=== PATIENT | male | born 1990 | race Two or more races ===

== ENCOUNTER 2018-02-02 23:51 | Emergency (ER) | payer OTHER ==
[~2018-02-02] VITALS: Ht 170.2 cm; Wt 63.5 kg
[2018-02-03] MEDS ORDERED: MEDROL8 MG PO (04:52)
[2018-02-03] MEDS ORDERED: PEPCID40 MG PO (04:52)
[2018-02-03] MEDS ORDERED: BENADRYL ALLERG25 MG PO (04:52)
== END 2018-02-03 | disposition home or self-care (01) ==
LOC: ER 23:51
DX: R22.9 Localized swelling, mass and lump, unspecified (principal); T78.1XXA Other adverse food reactions, not elsewhere classified, initial encounter; X58.XXXA Exposure to other specified factors, initial encounter

== ENCOUNTER 2018-05-06 23:39 | Emergency (ER) | payer OTHER ==
[~2018-05-06] VITALS: Ht 167.6 cm; Wt 59.9 kg
[~2018-05-06 23:39] MED LIST: BENADRYL ALLERG25 MG PO; MEDROL8 MG PO; PEPCID40 MG PO
[2018-05-07] MEDS ORDERED: MUPIROCIN22 GM SUBCUTANEO (01:39)
[2018-05-07] MEDS ORDERED: AMOX1TAB5 PO (01:39)
[2018-05-07] MEDS ORDERED: KETO10TA2 PO (01:39)
== END 2018-05-07 01:48 | disposition home or self-care (01) ==
LOC: ER 23:39
DX: S60.411A Abrasion of left index finger, initial encounter (principal); W26.0XXA Contact with knife, initial encounter; Y93.89 Activity, other specified; Y92.090 Kitchen in other non-institutional residence as the place of occurrence of the external cause; Y99.8 Other external cause status